=== PATIENT | female | born 1935 | race Caucasian/White ===

== ENCOUNTER 2024-03-17 13:25 | Inpatient (IN) ==
[2024-03-17] MEDS: NALOXONE HCL 0.4 MG/ML VIAL IV ONE ×4 (13:50→15:56)
[2024-03-17 14:08] LABS: Basophils # (Auto) 0.04 K/mcL (0.00-0.30); Basophils % (Auto) 0.5 % (0.0-2.0); Eosinophils # (Auto) 0.46 K/mcL (0.00-0.70); Eosinophils % (Auto) 5.2 % (0.0-7.0); Hematocrit 44.6 % (34.1-44.9); Hemoglobin 14.5 g/dL (11.2-15.7); Lymphocytes # (Auto) 1.57 K/mcL (1.50-4.80); Lymphocytes % (Auto) 17.7 % (15.5-49.0); Mean Cell Volume 101.8 fL (80.0-100.0); Mean Corpuscular HGB Conc 32.5 g/dL (31.0-36.0); Mean Platelet Volume 10.1 fL (8.8-12.5); Monocytes # (Auto) 0.81 K/mcL (0.10-0.90); Monocytes % (Auto) 9.1 % (1.0-12.0); Neutrophils % (Auto) 67.4 % (38.0-78.0); Platelet Count 228 K/mcL (140-440); RBC 4.38 M/mcL (3.59-5.38); WBC 8.9 K/mcL (4.5-11.0)
[2024-03-17 14:28] LABS: proBNP 87.2 pg/mL (<450.0)
[2024-03-17 14:30] LABS: ALT/SGPT 14 U/L (<40); AST/SGOT 12 U/L (<32); Albumin 4.1 gm/dL (3.2-5.2); Albumin/Globulin Ratio 1.9 (1.0-2.3); Alkaline Phosphatase 103 U/L (39-117); Bilirubin,Total 0.4 mg/dL (0.1-1.0); Blood Urea Nitrogen 24 mg/dL (8-23); Calcium 10.6 mg/dL (8.6-10.4); Carbon Dioxide 27 mmol/L (22-30); Chloride 101 mmol/L (96-108); Globulin 2.2 gm/dL (2.2-3.7); Glomerular Filtration Rate 57; Glucose 108 mg/dL (70-105); Potassium 4.4 mmol/L (3.3-5.1); Sodium 138 mmol/L (133-145)
[2024-03-17 14:31] LABS: Prothrombin Time 13.7 sec (11.9-14.5)
[2024-03-17 14:33] LABS: Appearance,Urine Clear (Clear); Bacteria,Urine Many /hpf (0); Bilirubin,Urine Negative (Negative); Color,Urine Yellow; Glucose,Urine (UA) Negative (Negative); Ketones,Urine Negative (Negative); Leukocyte Esterase,Urine Large /uL (Negative); Nitrate,Urine Negative (Negative); Protein,Urine Negative (Negative); Urine Blood Trace-intact ery/mcL (Negative); Urine RBC 15 /hpf (0-3); Urine Squamous Epithelial Cell 2 /hpf (0-4); Urine WBC > 182 /hpf (0-4); Urobilinogen,Urine Normal
[2024-03-17] MEDS: cefTRIAXone 2 GM in DEXTROSE 5% IN WATER 50 ML IV ONE (14:52)
[2024-03-17] MEDS: AZITHROMYCIN 500 MG in 0.9 % SODIUM CHLORIDE 250 ML IV ONE (15:14)
[2024-03-17 15:57] LABS: Thyroid Stimulating Hormone 2.88 uIU/mL (0.27-5.01)
[2024-03-17 15:58] LABS: Amphetamine Screen,Urine None detected; Barbiturate Screen,Urine None detected; Benzodiazepines Screen,Urine None detected; Cannabinoid Screen,Urine None detected; Cocaine Screen,Urine None detected; Fentanyl, Urine Screen None Detected; Opiate Screen,Urine None detected; Oxycodone, Urine Screen None detected; Phencyclidine Screen,Urine None detected
[2024-03-17 16:00] LABS: Free T4 (Free Thyroxine) 1.44 ng/dL (0.93-1.70)
[2024-03-17] MEDS: 0.9 % SODIUM CHLORIDE 1,000 ML IV ONE (16:45)
[2024-03-17] MEDS: 0.9 % SODIUM CHLORIDE 500 ML IV ONE (18:49)
[2024-03-17] MEDS ORDERED: IPRATROPIUM/ALBUTEROL 3 ML AMPUL.NEB NEB PRN (19:32)
[2024-03-17] MEDS ORDERED: SENNOSIDES 1 TABLET PO PRN (19:32)
[2024-03-17] MEDS ORDERED: ONDANSETRON 4 MG/2 ML VIAL IV PRN (19:32)
[2024-03-17] MEDS ORDERED: LACTULOSE 20 GM/30 ML ORAL.SOL PO PRN (19:32)
[2024-03-17] MEDS: LACTATED RINGERS 1,000 ML IV SCH (20:00)
[2024-03-17] MEDS: ACETAMINOPHEN 650 MG/65 ML BAG IV SCH (20:44)
[2024-03-17] MEDS: 0.9 % SODIUM CHLORIDE 10 ML SYRINGE IV SCH (21:06)
[2024-03-18 06:25] LABS: ALT/SGPT 12 U/L (<40); AST/SGOT 10 U/L (<32); Albumin 3.2 gm/dL (3.2-5.2); Albumin/Globulin Ratio 1.8 (1.0-2.3); Alkaline Phosphatase 85 U/L (39-117); Bilirubin,Direct < 0.2 mg/dL (0-0.3); Bilirubin,Total 0.3 mg/dL (0.1-1.0); Blood Urea Nitrogen 20 mg/dL (8-23); Calcium 9.4 mg/dL (8.6-10.4); Carbon Dioxide 23 mmol/L (22-30); Chloride 106 mmol/L (96-108); Globulin 1.8 gm/dL (2.2-3.7); Glomerular Filtration Rate 81; Glucose 88 mg/dL (70-105); Lactate Dehydrogenase 131 U/L (135-225); Phosphorous 2.9 mg/dL (2.5-4.5); Potassium 4.1 mmol/L (3.3-5.1); Sodium 137 mmol/L (133-145); Triglycerides 108 mg/dL (<150)
[2024-03-18 06:29] LABS: Basophils # (Auto) 0.04 K/mcL (0.00-0.30); Basophils % (Auto) 0.5 % (0.0-2.0); Eosinophils # (Auto) 0.51 K/mcL (0.00-0.70); Eosinophils % (Auto) 6.2 % (0.0-7.0); Hematocrit 34.5 % (34.1-44.9); Hemoglobin 11.3 g/dL (11.2-15.7); Lymphocytes # (Auto) 1.44 K/mcL (1.50-4.80); Lymphocytes % (Auto) 17.5 % (15.5-49.0); Mean Cell Volume 102.7 fL (80.0-100.0); Mean Corpuscular HGB Conc 32.8 g/dL (31.0-36.0); Mean Platelet Volume 10.4 fL (8.8-12.5); Monocytes # (Auto) 0.63 K/mcL (0.10-0.90); Monocytes % (Auto) 7.7 % (1.0-12.0); Platelet Count 180 K/mcL (140-440); RBC 3.36 M/mcL (3.59-5.38); Red Cell Distribution Width 12.1 % (11.5-14.5); WBC 8.2 K/mcL (4.5-11.0)
[2024-03-18] MEDS: AZITHROMYCIN 500 MG in 0.9 % SODIUM CHLORIDE 250 ML IV SCH (08:29)
[2024-03-18] MEDS ORDERED: cefTRIAXone 1 GM VIAL IV SCH (09:00)
[2024-03-18] MEDS: ENOXAPARIN 40 MG/0.4 ML SYRINGE SQ SCH (09:53)
[2024-03-18] MEDS: cefTRIAXone 2 GM in DEXTROSE 5% IN WATER 50 ML IV SCH (09:54)
[2024-03-18] MEDS ORDERED: BISACODYL 10 MG SUPP.RECT PR PRN (11:05)
[2024-03-18] MEDS ORDERED: TRIAMCINOLONE CREAM 0.1% 15G 1 DOSE TUBE TOPICAL PRN (11:05)
[2024-03-18] MEDS: MAG HYDROX/AL HYDROX/SIMETH 30 ML ORAL.SUSP PO SCH (12:29)
[2024-03-18] MEDS ORDERED: IOPAMIDOL 100 ML BOTTLE IV ONE (13:26)
[2024-03-18] MEDS: ACETAMINOPHEN 1,000 MG/100 ML BAG IV SCH (19:09)
[2024-03-18] MEDS: MELATONIN 3 MG TABLET PO SCH (19:09)
[2024-03-19 07:00] LABS: Basophils # (Auto) 0.05 K/mcL (0.00-0.30); Basophils % (Auto) 0.6 % (0.0-2.0); Eosinophils # (Auto) 0.42 K/mcL (0.00-0.70); Hemoglobin 12.9 g/dL (11.2-15.7); Lymphocytes # (Auto) 0.77 K/mcL (1.50-4.80); Lymphocytes % (Auto) 9.1 % (15.5-49.0); Mean Cell Volume 100.3 fL (80.0-100.0); Mean Corpuscular HGB Conc 33.1 g/dL (31.0-36.0); Mean Platelet Volume 10.8 fL (8.8-12.5); Monocytes # (Auto) 0.64 K/mcL (0.10-0.90); Monocytes % (Auto) 7.5 % (1.0-12.0); Neutrophils % (Auto) 77.7 % (38.0-78.0); Platelet Count 192 K/mcL (140-440); RBC 3.89 M/mcL (3.59-5.38); Red Cell Distribution Width 11.7 % (11.5-14.5); WBC 8.5 K/mcL (4.5-11.0)
[2024-03-19 07:11] LABS: ALT/SGPT 14 U/L (<40); AST/SGOT 15 U/L (<32); Albumin 3.8 gm/dL (3.2-5.2); Albumin/Globulin Ratio 1.7 (1.0-2.3); Alkaline Phosphatase 104 U/L (39-117); Bilirubin,Direct 0.2 mg/dL (<0.3); Bilirubin,Total 0.5 mg/dL (0.1-1.0); Blood Urea Nitrogen 14 mg/dL (8-23); Carbon Dioxide 23 mmol/L (22-30); Chloride 104 mmol/L (96-108); Globulin 2.2 gm/dL (2.2-3.7); Glomerular Filtration Rate 81; Glucose 91 mg/dL (70-105); Lactate Dehydrogenase 157 U/L (135-225); Phosphorous 2.3 mg/dL (2.5-4.5); Potassium 4.1 mmol/L (3.3-5.1); Sodium 139 mmol/L (133-145); Triglycerides 112 mg/dL (<150); Uric Acid 4.1 mg/dL (2.5-8.0)
[2024-03-19] MEDS: VITAMIN D3 25 MCG TABLET PO SCH (08:09)
[2024-03-19] MEDS: LEVOTHYROXINE 75 MCG TABLET PO SCH (08:09)
[2024-03-19] MEDS: ASPIRIN 81 MG TAB.CHEW PO SCH (08:10)
[2024-03-19] MEDS: MELOXICAM 7.5 MG TABLET PO SCH (08:10)
[2024-03-19] MEDS: OMEPRAZOLE 20 MG CAPSULE PO SCH (08:10)
[2024-03-19] MEDS: ATORVASTATIN 40 MG TABLET PO SCH (08:10)
[2024-03-19] MEDS: AZITHROMYCIN 250 MG TABLET PO SCH (10:29)
[2024-03-19] MEDS: traMADol 50 MG TABLET PO PRN (14:22)
[2024-03-19] MEDS: ACETAMINOPHEN 1,000 MG/100 ML BAG IV ONE (17:57)
[2024-03-20 06:02] LABS: Basophils # (Auto) 0.02 K/mcL (0.00-0.30); Basophils % (Auto) 0.3 % (0.0-2.0); Eosinophils # (Auto) 0.18 K/mcL (0.00-0.70); Eosinophils % (Auto) 2.9 % (0.0-7.0); Hematocrit 39.4 % (34.1-44.9); Hemoglobin 13.4 g/dL (11.2-15.7); Lymphocytes % (Auto) 8.1 % (15.5-49.0); Mean Cell Volume 98.5 fL (80.0-100.0); Mean Platelet Volume 10.5 fL (8.8-12.5); Monocytes # (Auto) 0.83 K/mcL (0.10-0.90); Monocytes % (Auto) 13.4 % (1.0-12.0); Neutrophils % (Auto) 75.1 % (38.0-78.0); Platelet Count 180 K/mcL (140-440); Red Cell Distribution Width 11.7 % (11.5-14.5); WBC 6.2 K/mcL (4.5-11.0)
[2024-03-20 06:28] LABS: ALT/SGPT 19 U/L (<40); AST/SGOT 18 U/L (<32); Albumin 3.8 gm/dL (3.2-5.2); Albumin/Globulin Ratio 1.7 (1.0-2.3); Alkaline Phosphatase 103 U/L (39-117); Bilirubin,Direct < 0.2 mg/dL (0-0.3); Bilirubin,Total 0.3 mg/dL (0.1-1.0); Blood Urea Nitrogen 13 mg/dL (8-23); Calcium 10.1 mg/dL (8.6-10.4); Carbon Dioxide 24 mmol/L (22-30); Chloride 102 mmol/L (96-108); Globulin 2.3 gm/dL (2.2-3.7); Glomerular Filtration Rate 81; Glucose 109 mg/dL (70-105); Lactate Dehydrogenase 146 U/L (135-225); Phosphorous 2.9 mg/dL (2.5-4.5); Potassium 4.1 mmol/L (3.3-5.1); Sodium 136 mmol/L (133-145); Triglycerides 91 mg/dL (<150); Uric Acid 3.8 mg/dL (2.5-8.0)
[2024-03-20] MEDS: amLODIPine 10 MG TABLET PO SCH (08:36)
[2024-03-20] MEDS: LACTATED RINGERS 1,000 ML IV SCH (09:12)
[2024-03-20] MEDS: POLYETHYLENE GLYCOL 3350 17 GM PACKET PO SCH (09:12)
[2024-03-21 07:06] LABS: Basophils # (Auto) 0.01 K/mcL (0.00-0.30); Basophils % (Auto) 0.2 % (0.0-2.0); Eosinophils % (Auto) 1.5 % (0.0-7.0); Hemoglobin 13.9 g/dL (11.2-15.7); Lymphocytes # (Auto) 0.55 K/mcL (1.50-4.80); Lymphocytes % (Auto) 8.3 % (15.5-49.0); Mean Cell Volume 98.3 fL (80.0-100.0); Mean Corpuscular HGB Conc 33.9 g/dL (31.0-36.0); Monocytes # (Auto) 0.91 K/mcL (0.10-0.90); Monocytes % (Auto) 13.8 % (1.0-12.0); Neutrophils % (Auto) 75.9 % (38.0-78.0); Platelet Count 174 K/mcL (140-440); RBC 4.17 M/mcL (3.59-5.38); Red Cell Distribution Width 11.7 % (11.5-14.5); WBC 6.6 K/mcL (4.5-11.0)
[2024-03-21 07:46] LABS: ALT/SGPT 22 U/L (<40); AST/SGOT 20 U/L (<32); Albumin 3.9 gm/dL (3.2-5.2); Albumin/Globulin Ratio 1.7 (1.0-2.3); Alkaline Phosphatase 100 U/L (39-117); Bilirubin,Direct < 0.2 mg/dL (0-0.3); Bilirubin,Total 0.3 mg/dL (0.1-1.0); Blood Urea Nitrogen 12 mg/dL (8-23); Calcium 9.5 mg/dL (8.6-10.4); Carbon Dioxide 23 mmol/L (22-30); Chloride 100 mmol/L (96-108); Globulin 2.3 gm/dL (2.2-3.7); Glomerular Filtration Rate 81; Glucose 102 mg/dL (70-105); Lactate Dehydrogenase 164 U/L (135-225); Phosphorous 2.8 mg/dL (2.5-4.5); Potassium 4.1 mmol/L (3.3-5.1); Sodium 137 mmol/L (133-145); Triglycerides 95 mg/dL (<150); Uric Acid 3.8 mg/dL (2.5-8.0)
[2024-03-21] MEDS: ACETAMINOPHEN 500 MG TABLET PO PRN (07:49)
[2024-03-21] MEDS ORDERED: PHENOL/SODIUM PHENOLATE 5 SPRAY BOTTLE 180ML SSP PRN (10:00)
[2024-03-21] MEDS: POLYETHYLENE GLYCOL 3350 17 GM PACKET PO SCH (11:05)
[2024-03-21] MEDS: CEFUROXIME 500 MG TABLET PO SCH (11:05)
[2024-03-21] MEDS ORDERED: MAG HYDROX/AL HYDROX/SIMETH 30 ML ORAL.SUSP PO PRN (19:16)
[2024-03-21] MEDS ORDERED: POLYETHYLENE GLYCOL 3350 17 GM PACKET PO PRN (19:17)
[2024-03-22 06:50] LABS: Basophils # (Auto) 0.03 K/mcL (0.00-0.30); Basophils % (Auto) 0.5 % (0.0-2.0); Eosinophils # (Auto) 0.21 K/mcL (0.00-0.70); Eosinophils % (Auto) 3.7 % (0.0-7.0); Hematocrit 41.7 % (34.1-44.9); Hemoglobin 14.2 g/dL (11.2-15.7); Lymphocytes # (Auto) 1.15 K/mcL (1.50-4.80); Mean Cell Volume 97.9 fL (80.0-100.0); Mean Corpuscular HGB Conc 34.1 g/dL (31.0-36.0); Monocytes # (Auto) 0.78 K/mcL (0.10-0.90); Monocytes % (Auto) 13.6 % (1.0-12.0); Neutrophils % (Auto) 62.2 % (38.0-78.0); Platelet Count 180 K/mcL (140-440); RBC 4.26 M/mcL (3.59-5.38); Red Cell Distribution Width 11.7 % (11.5-14.5); WBC 5.7 K/mcL (4.5-11.0)
[2024-03-22 07:01] LABS: ALT/SGPT 25 U/L (<40); AST/SGOT 22 U/L (<32); Albumin 3.7 gm/dL (3.2-5.2); Albumin/Globulin Ratio 1.5 (1.0-2.3); Alkaline Phosphatase 94 U/L (39-117); Bilirubin,Direct < 0.2 mg/dL (0-0.3); Bilirubin,Total 0.3 mg/dL (0.1-1.0); Blood Urea Nitrogen 19 mg/dL (8-23); Calcium 9.8 mg/dL (8.6-10.4); Carbon Dioxide 25 mmol/L (22-30); Chloride 100 mmol/L (96-108); Globulin 2.4 gm/dL (2.2-3.7); Glomerular Filtration Rate 77; Glucose 101 mg/dL (70-105); Lactate Dehydrogenase 189 U/L (135-225); Phosphorous 3.4 mg/dL (2.5-4.5); Potassium 4.1 mmol/L (3.3-5.1); Sodium 137 mmol/L (133-145); Triglycerides 106 mg/dL (<150); Uric Acid 4.3 mg/dL (2.5-8.0)
== END 2024-03-22 13:27 | DRG 70 ==
LOC: ED 13:25 → ICU 19:29 → MEDSUR 03-19 22:36
PROVIDERS: ADMIT Student in an Organized Health Care Education/Training Program; ATTEND Student in an Organized Health Care Education/Training Program